=== PATIENT | female | born 1990 | race Caucasian/White ===

== ENCOUNTER 2016-11-19 10:57 | Day surgery (SDC) | payer OTHER ==
[~2016-11-19] VITALS: Ht 157.5 cm; Wt 54.4 kg
[~2016-11-19 10:57] MED LIST: CHAN0.5P2 PO; DIAZ10TA2 PO; HYDR25T PO; LORA10TA2 PO; LR 1,000 ML IV SCH; NICO21PAT TD; SERT-138 PO; TRAZ100T4 PO; TRAZ10TA PO; VALA500T PO; ZOLO100T PO
[2016-11-19] MEDS ORDERED: ROCURONIUM BROMIDE 50 MG/5 ML VIAL As Ordered ONE ×2 (11:09→13:21)
[2016-11-19] MEDS ORDERED: LIDOCAINE 2% INJ 100 MG/5 ML SDV (FOR ANES.) As Ordered ONE (11:09)
[2016-11-19] MEDS ORDERED: ONDANSETRON 4MG/2ML VIAL (J2405) As Ordered ONE (11:09)
[2016-11-19] MEDS ORDERED: PROPOFOL 200 MG/20 ML VIAL As Ordered ONE (11:09)
[2016-11-19] MEDS ORDERED: ceFAZolin SOD 1 GM in D5W MINI-BAG PLUS 50 ML IV ONE (11:15)
[2016-11-19] MEDS ORDERED: LR 1,000 ML IV SCH ×2 (11:15→15:15)
[2016-11-19 11:17] LABS: MEAN CORPUSCULAR HEMOGLOBIN 30.3 pg (27.0-33.0); MEAN CORPUSCULAR VOLUME 89.1 fl (80.0-96.0); RED CELL DISTRIBUTION WIDTH 12.5 % (11.5-14.5); WHITE BLOOD COUNT 6.6 K/mm3 (4.0-10.0)
[2016-11-19] MEDS ORDERED: MIDAZOLAM INJ 2 MG/2 ML VIAL (J2250) As Ordered ONE (11:46)
[2016-11-19] MEDS ORDERED: fentaNYL 100 MCG/2 ML INJECTION (J3010) As Ordered ONE ×3 (11:46→14:43)
[2016-11-19 11:52] LABS: CONTROL LINE UCG INT CTR LINE PRESENT
[2016-11-19] MEDS ORDERED: METHYLENE BLUE 1% 10 ML VIAL (Q9968) As Ordered ONE (12:19)
[2016-11-19] MEDS ORDERED: BUPIVACAINE HCL 0.25% 30 ML VIAL As Ordered ONE (12:19)
[2016-11-19] MEDS ORDERED: OXYC1TAB23 PO (12:42)
[2016-11-19] MEDS ORDERED: dexameTHASONE 4 MG/ML 1ML VIAL (J1100) As Ordered ONE (13:19)
[2016-11-19] MEDS ORDERED: HYDROmorphone HCL 2 MG/ML 1ML VIAL (J1170) As Ordered ONE (13:37)
[2016-11-19] MEDS ORDERED: BUPIVACAINE HCL 0.25% 30 ML VIAL XX ONE (13:51)
[2016-11-19] MEDS ORDERED: METHYLENE BLUE 1% 10 ML VIAL (Q9968) XX ONE (13:57)
[2016-11-19] MEDS ORDERED: NEOSTIGMINE 1MG/ML 5 ML SYRINGE (J2710) As Ordered ONE (14:02)
[2016-11-19] MEDS ORDERED: GLYCOPYRROLATE INJ 0.2 MG/ML 2 ML VIAL As Ordered ONE ×2 (14:02→14:03)
[2016-11-19] MEDS ORDERED: KETOROLAC 60 MG/2 ML VIAL (J1885) As Ordered ONE (14:05)
[2016-11-19] MEDS: fentaNYL 100 MCG/2 ML INJECTION (J3010) IV PRN ×4 (14:46→15:02)
[2016-11-19] MEDS ORDERED: MORPHINE 4 MG/ML 1ML SYRINGE IV PRN (15:15)
[2016-11-19] MEDS ORDERED: ONDANSETRON 4MG/2ML VIAL (J2405) IV PRN ×2 (15:15)
[2016-11-19] MEDS: LR 1,000 ML IV SCH ×2 (15:15→23:15)
[2016-11-19] MEDS ORDERED: HYDROmorphone HCL 1 MG/ML SYRINGE (J1170) As Ordered ONE (15:15)
[2016-11-19] MEDS ORDERED: PERCOCET 5MG/325MG TAB PO PRN ×2 (15:15)
[2016-11-19] MEDS: HYDROmorphone HCL 1 MG/ML SYRINGE (J1170) IV PRN ×3 (15:17→15:32)
[2016-11-19 16:15] VITALS: BP 98/54
[2016-11-19 16:30] VITALS: BP_SYST 116; BP_DIAS 57; BP_DIAS 64
[2016-11-19 17:30] VITALS: BP 98/54
[2016-11-19 18:30] VITALS: BP 115/65
[2016-11-19 20:00] VITALS: BP 93/55
[2016-11-19] MEDS: busPIRone 10 MG TAB PO SCH (21:00)
[2016-11-19 21:30] VITALS: BP 95/51
[2016-11-19] MEDS: PERCOCET 5MG/325MG TAB PO PRN (22:03)
[2016-11-19] MEDS: DOCUSATE SODIUM 100 MG CAP PO SCH (22:04)
[2016-11-19] MEDS ORDERED: KETOROLAC 30 MG/ML VIAL (J1885) IV PRN (22:30)
[2016-11-19] MEDS: VARENICLINE 1 MG TABLET PO SCH (23:05)
[2016-11-20] VITALS: BP 113/56
[2016-11-20] MEDS ORDERED: LORATADINE 10 MG TAB PO PRN (00:30)
[2016-11-20] MEDS ORDERED: hydrOXYzine 25 MG TAB PO PRN (00:30)
[2016-11-20] MEDS ORDERED: traZODone 100 MG TAB PO PRN (00:30)
[2016-11-20 04:00] VITALS: BP 98/54
[2016-11-20] MEDS: PERCOCET 5MG/325MG TAB PO PRN ×2 (04:32→10:18)
[2016-11-20 07:08] LABS: MEAN CORPUSCULAR HEMOGLOBIN 30.4 pg (27.0-33.0); MEAN CORPUSCULAR HGB CONC 33.5 g/dl (32.0-36.5); MEAN CORPUSCULAR VOLUME 90.8 fl (80.0-96.0); RED CELL DISTRIBUTION WIDTH 12.6 % (11.5-14.5); WHITE BLOOD COUNT 7.2 K/mm3 (4.0-10.0)
[2016-11-20 08:00] VITALS: BP 105/50
--- NOTE | 2016-11-20 08:42 | RO ---
DATE OF PROCEDURE: 11/19/2016 PREPROCEDURE DIAGNOSIS: Menorrhagia, dysmenorrhea. POSTPROCEDURE DIAGNOSIS: Menorrhagia, dysmenorrhea. PROCEDURE: Robotic-assisted laparoscopic hysterectomy, cystoscopy. SURGEON: Dr. Abimael Crandall IMPLEMENTATION DIRECTOR: Elena Vuong NP ANESTHESIA: General endotracheal. ESTIMATED BLOOD LOSS: Minimal. FINDINGS: Normal sized uterus, significantly shortened cervix with scarring of cervical os, normal ovaries, fallopian tubes with evidence of prior tubal sterilization. Filmy adhesions of the ascending colon to the anterior abdominal wall on the right. OPERATIVE SUMMARY: The patient was taken to the operating room where general endotracheal anesthesia was induced. She was prepped and draped in sterile fashion in the dorsal lithotomy position. Bolden catheter was placed. A Iotum uterine manipulator was placed. A periumbilical incision was made with a scalpel. A Veress needle was placed through this incision while tenting up on the skin of the abdomen. Intraabdominal location of the Veress needle was assessed with use of a saline filled syringe. A pneumoperitoneum was created. The Veress needle was removed. An 11 mm trocar was placed through this incision under direct visualization using [employer] Entertainment[employer]. Three 8 mm suprapubic ports were placed under direct visualization. The patient was placed in Trendelenburg position and da Jeremy surgical robot was docked. Adhesions of the ascending colon to the anterior abdominal wall were taken down sharply. Using PK dissector and monopolar Endo Karma, the fallopian tubes, utero-ovarian ligaments, and round ligaments were coagulated and incised. The anterior and posterior leaves of the broad ligament were . A bladder flap was created. The dyer assistant for the case was Elena Vuong. Her function was to assist with set up, including placement of the ports and docking of the robot. She also was responsible for manipulation of the uterus throughout the entire procedure. The uterine vessels were coagulated and incised. A colpotomy was created using monopolar Endo Karma and performed circumferentially around the cervix. The specimen, containing the uterus and cervix, was removed through the vagina. The vagina was closed with #2 V-Loc suture in a running fashion. The pelvis was irrigated. The patient received methylene blue dye intravenously. Cystoscopy was performed using a 70 degree cystoscope. There was in injury to the bladder. Bilateral ureteral jets were identified. The scope was removed and the Bolden catheter was replaced. All ports were removed. The fascia at the umbilical port was closed with interrupted suture of #0 Vicryl. The skin was closed with #4-0 Monocryl subcuticular sutures. Sponge, instrument and needle counts were correct.
[2016-11-20] MEDS ORDERED: SERTRALINE 100 MG TAB PO SCH (09:00)
[2016-11-20] MEDS ORDERED: IBUP200C PO (10:10)
[2016-11-20] MEDS: busPIRone 10 MG TAB PO SCH (10:15)
[2016-11-20] MEDS: DOCUSATE SODIUM 100 MG CAP PO SCH (10:15)
[2016-11-20] MEDS: VARENICLINE 1 MG TABLET PO SCH (10:15)
== END 2016-11-20 10:58 | disposition home or self-care (01) ==
LOC: M SDC 10:57 → M PED 15:32 → M SDC 11-20 10:58
PROVIDERS: ATTEND Specialist
DX: N92.0 Excessive and frequent menstruation with regular cycle (principal); N72 Inflammatory disease of cervix uteri; N94.6 Dysmenorrhea, unspecified; F41.9 Anxiety disorder, unspecified; F32.9 Major depressive disorder, single episode, unspecified; F17.210 Nicotine dependence, cigarettes, uncomplicated; Z79.899 Other long term (current) drug therapy
CPT/HCPCS: 36415; 58571; 84703; 85027; 88309; 96374; 96375; J0690; J1100; J1170; J1885; J2250; J2405; J2710; J3010; Q9968

== ENCOUNTER 2016-11-25 16:25 | Emergency (ER) | payer OTHER ==
[~2016-11-25 16:25] MED LIST changes: +IBUP200C PO; -LR 1,000 ML IV SCH; +OXYC1TAB23 PO
[2016-11-25] MEDS ORDERED: OXYCODONE/APAP 5MG/325MG(BULK) 1 TAB TAB As Ordered ONE (20:01)
[2016-11-25] MEDS ORDERED: MAGNESIUM CITRATE 300 ML BTL As Ordered ONE (20:02)
--- NOTE | 2016-11-25 20:09 | EDDOCDS ---
Physician Documentation [facility] Name: Trudy Johnson Age: 26 yrs Sex: Female : 1990 Arrival Date: 11/25/2016 Time: 16:25 Bed I6 Private MD: Mildred Alfonso M Disposition: 11/25/16 19:56 Discharged to Home/Self Care. Impression: Generalized abdominal pain - post-op. - Condition is Stable. - Discharge Instructions: Abdominal Pain, Adult, Constipation, Adult. - Medication Reconciliation form. - Follow up: Abimael Crandall MD; When: Tomorrow; Reason: Recheck today's complaints, Continuance of care. - Problem is an ongoing problem. - Symptoms are unchanged. - Notes: Follow up with Dr. Crandall in the morning for a recheck. Historical: - Allergies: Vicodin (Hives); - Home Meds: 1. Zoloft 100 mg Oral tab 2 tabs once daily 2. trazodone 100 mg Oral tab 1 tab nightly as needed 3. hydroxyzine HCl 25 mg Oral tab nightly 4. Chantix 1 mg Oral tab 1 tab 2 times per day - PMHx: Anxiety; Cutting; Depression; sleep disturbance; - PSHx: jaw surgery; cone biopsy; LEEP Procedure; Tubal ligation; - Social history: Smoking status: Patient states former smoker of tobacco. No barriers to communication noted, The patient speaks fluent Micronesian. - Family history: Not pertinent. - : The pt / caregiver states he / she is not on anticoagulants. Home medication list is obtained from the patient, [employer] import data. - Exposure Risk Screening:: None identified. 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 2 in. (157.48 cm) (R); Pain 6/10; 20:00 BP 116 / 67; Pulse 58; Resp 18; Temp 98.6; Pulse Ox 98% ; Pain 6/10; ajs 16:27 Body Mass Index 21.95 (54.43 kg, 157.48 cm) lr2 MDM: 19:07 Undress patient appropriately for examination ordered. cc10 19:09 ECG WITH READING ER PHYS+CARDIAG ordered. EDMS 19:55 Magnesium Citrate Liquid 300 ml PO once; Dispense home with pt. ordered. cc10 19:55 oxyCODONE-acetaminophen 4 pack 5 mg-325 mg 1 packets PO once; Dispense with pt, take as cc10 per instruction on package ordered. 19:58 Physician consultation: Discussed case with Dr. Thurston. He is not concerned about her cc10 symptoms at this point. Treat her constipation and Dr. Crandall can see her in the office tomorrow AM. Pt understands and agrees with treatment plan. . Administered Medications: 20:07 Drug: oxyCODONE-acetaminophen 4 pack 1 packets [oxycodone-acetaminophen 5 mg-325 mg kc3 tablet (1 tabs)] {Co-Signature: mcp (Erin Pradhan RN).} Route: PO; 20:08 Drug: Magnesium Citrate 300 ml [magnesium citrate oral solution (300 mL)] Route: PO; kc3 Signatures: Dispatcher [employer] EDMS Zo Natarajan, RN RN kcs Richard Leblanc PA-C PAS[place] cc10 Marina Rodriguez RN RN kc3 Erin Pradhan RN mcp MTDD
--- NOTE | 2016-11-25 20:09 | EDDOCDS ---
Nurse's Notes [facility] Name: Trudy Johnson Age: 26 yrs Sex: Female : 1990 Arrival Date: 11/25/2016 Time: 16:25 Bed I6 Private MD: Mildred Alfonso M Diagnosis: Generalized abdominal [id number] Presentation: 11/25 16:42 Presenting complaint: Patient states: she had a hysterectomy on Thursday and she has kcs been having a lot of pain - feels like she has a rubber band around her waist - hurts to take a deep breath - also has a yellow discharge. Also has pain in her left. has an appointment with her surgeon tomorrow. Adult Sepsis Screening: The patient does not have new or worsening altered mentation. Patient's respiratory rate is less than 22. Systolic blood pressure is greater than 100. Patient has a qSOFA score of 0- Negative Sepsis Screen. Suicide/Homicide risk assessment- the patient denies having any suicidal and/or homicidal ideations and does not present with any other emotional, behavioral or mental health complaints. Status: The patient is a dependent. Transition of care: patient was not received from another setting of care. 16:42 Acuity: HEATHER Level 3 kcs 16:42 Method Of Arrival: Walkin/Carried/Asstd kcs Triage Assessment: 16:45 General: Appears slender, uncomfortable, well developed, well nourished, well groomed, kcs Behavior is cooperative, pleasant. Pain: Location: left side of abdomen Pain currently is 6 out of 10 on a pain scale. HIV screening NA for this visit Offered previously. Neurological: Level of Consciousness is awake, alert. Respiratory: Airway is patent Respiratory effort is even, unlabored, Respiratory pattern is regular, symmetrical. Derm: Skin is intact, is healthy with good turgor, Skin is dry, Skin is normal. 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 Zoloft 100 mg Oral tab 2 tabs once daily 2. trazodone 100 mg Oral tab 1 tab nightly as needed 3. hydroxyzine HCl 25 mg Oral tab nightly 4. Chantix 1 mg Oral tab 1 tab 2 times per day - PMHx: Anxiety; Cutting; Depression; sleep disturbance; - PSHx: jaw surgery; cone biopsy; LEEP Procedure; Tubal ligation; - Social history: Smoking status: Patient states former smoker of tobacco. No barriers to communication noted, The patient speaks fluent Hebrew. - Family history: Not pertinent. - : The pt / caregiver states he / she is not on anticoagulants. Home medication list is obtained from the patient, [employer] import data. - Exposure Risk Screening:: None identified. Screenin:06 Screening information is obtained from the patient. Fall risk: No risks identified. kc3 Assistance ADL's: requires no assistance with activities of daily living. Abuse/DV Screen: The patient / caregiver reports he/she is: not in a situation that causes fear, pain or injury. Nutritional screening: No deficits noted. Advance Directives: Currently, there is no health care proxy. home support is adequate. Assessment: 20:05 General: Appears in no apparent distress, comfortable, Behavior is appropriate for age, kc3 cooperative. Pain: Location: abdomen. Neurological: Level of Consciousness is awake, alert, obeys commands, Oriented to person, place, time. Respiratory: Respiratory effort is even, unlabored. Derm: Skin is pink, warm & dry. Musculoskeletal: Circulation, motion, and sensation intact. Vital Signs: 16:27 BP 117 / 63; Pulse 60; Resp 16; Temp 98.1(O); Pulse Ox 98% on R/A; Weight 54.43 kg (R); lr2 Height 5 ft. 2 in. (157.48 cm) (R); Pain 6/10; 20:00 BP 116 / 67; Pulse 58; Resp 18; Temp 98.6; Pulse Ox 98% ; Pain 6/10; ajs 16:27 Body Mass Index 21.95 (54.43 kg, 157.48 cm) lr2 Vitals: 16:27 Log In Time: November 25, 2016 at 16:25. lr2 ED Course: 16:26 Patient visited by Nicole James. lr2 16:26 Patient moved to Waiting lr2 16:28 Mildred Alfonso is Private Physician. lr2 16:28 Patient moved to Pre RCE lr2 16:44 Triage Initiated kcs 18:44 Patient moved to Triage 2 ms18 18:56 [facility]anc [facility] cc10 18:56 Chichi Macias MD is Attending Physician. cc10 18:56 Patient visited by Richard Leblanc PA-C. cc10 18:56 Patient visited by Richard Leblanc PA-C. cc10 19:27 Patient visited by Barbara Emery RN. ms18 19:27 EKG done. (by ED staff). Reviewed by Richard Leblanc PA-C. ms18 19:32 Patient moved to ms18 19:56 Abimael Crandall MD is Referral Physician. cc10 20:01 Patient visited by Torri Harris. ajs 20:07 The patient / caregiver is instructed regarding the plan of care and ED course. kc3 20:07 No IV's were initiated during this patient's visit. No procedures done that require kc3 assistance. Administered Medications: 20:07 Drug: oxyCODONE-acetaminophen 4 pack 1 packets [oxycodone-acetaminophen 5 mg-325 mg kc3 tablet (1 tabs)] {Co-Signature: amrit (Erin Pradhan RN).} Route: PO; 20:08 Drug: Magnesium Citrate 300 ml [magnesium citrate oral solution (300 mL)] Route: PO; kc3 Order Results: There are currently no results for this order. Outcome: 19:56 Discharge ordered by Provider. cc10 20:06 Discharge Assessment: Patient awake, alert and oriented x 3. No cognitive and/or kc3 functional deficits noted. Patient verbalized understanding of disposition instructions. patient administered narcotics - no. The following High Risk Discharge criteria are identified: None. Discharged to home ambulatory. Condition: stable. Discharge instructions given to patient, Instructed on discharge instructions, follow up and referral plans. medication usage, Demonstrated understanding of instructions, medications, Pt was receptive of discharge instructions/ teaching. No special radiology studies were completed. Property :Personal belongings accompany Pt. 20:08 Patient left the ED. kc3 Signatures: Zo Natarajan RN RN kcs Slate, Amanda ajs Coniski, Colin, PA-C PA-C [facility] Barbara Emery RN RN ms18 Marina Rodriguez RN RN kc3 Nicole James lr2 Erin Pradhan RN, mcp MTDD
--- NOTE | 2016-11-26 10:03 | ECGEPIP ---
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
--- NOTE | 2016-11-27 21:09 | EDDOCDS ---
Physician Documentation [facility] Name: Trudy Johnson Age: 26 yrs Sex: Female : 1990 Arrival Date: 11/25/2016 Time: 16:25 Bed I6 Private MD: Mildred Alfonso M Disposition: 11/25/16 19:56 Discharged to Home/Self Care. Impression: Generalized abdominal pain - post-op. - Condition is Stable. - Discharge Instructions: Abdominal Pain, Adult, Constipation, Adult. - Medication Reconciliation form. - Follow up: Abimael Crandall MD; When: Tomorrow; Reason: Recheck today's complaints, Continuance of care. - Problem is an ongoing problem. - Symptoms are unchanged. - Notes: Follow up with Dr. Crandall in the morning for a recheck. Historical: - Allergies: Vicodin (Hives); - Home Meds: 1. Zoloft 100 mg Oral tab 2 tabs once daily 2. trazodone 100 mg Oral tab 1 tab nightly as needed 3. hydroxyzine HCl 25 mg Oral tab nightly 4. Chantix 1 mg Oral tab 1 tab 2 times per day - PMHx: Anxiety; Cutting; Depression; sleep disturbance; - PSHx: jaw surgery; cone biopsy; LEEP Procedure; Tubal ligation; - Social history: Smoking status: Patient states former smoker of tobacco. No barriers to communication noted, The patient speaks fluent Luxembourgish. - Family history: Not pertinent. - : The pt / caregiver states he / she is not on anticoagulants. Home medication list is obtained from the patient, [employer] import data. - Exposure Risk Screening:: None identified. 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 2 in. (157.48 cm) (R); Pain 6/10; 20:00 BP 116 / 67; Pulse 58; Resp 18; Temp 98.6; Pulse Ox 98% ; Pain 6/10; ajs 16:27 Body Mass Index 21.95 (54.43 kg, 157.48 cm) lr2 MDM: 19:07 Undress patient appropriately for examination ordered. cc10 19:09 ECG WITH READING ER PHYS+CARDIAG ordered. EDMS 19:55 Magnesium Citrate Liquid 300 ml PO once; Dispense home with pt. ordered. cc10 19:55 oxyCODONE-acetaminophen 4 pack 5 mg-325 mg 1 packets PO once; Dispense with pt, take as cc10 per instruction on package ordered. 19:58 Physician consultation: Discussed case with Dr. Thurston. He is not concerned about her cc10 symptoms at this point. Treat her constipation and Dr. Crandall can see her in the office tomorrow AM. Pt understands and agrees with treatment plan. . 20:11 [facility] Payment Agreement was scanned into People [employer] Pages and attached to record. vt: Financial registration complete. vt11/26 12:52 T-Sheet-- Draft Copy was scanned into [employer] and attached to record. gb 12:52 ECG/EKG was scanned into [employer] and attached to record. gb Administered Medications: 11/25 20:07 Drug: oxyCODONE-acetaminophen 4 pack 1 packets [oxycodone-acetaminophen 5 mg-325 mg kc3 tablet (1 tabs)] {Co-Signature: mcp (Erin Pradhan RN).} Route: PO; 20:08 Drug: Magnesium Citrate 300 ml [magnesium citrate oral solution (300 mL)] Route: PO; kc3 Signatures: Dispatcher [employer] EDMS Zo Natarajan RN RN kcs Kandice Love, Reg Reg gb Richard Leblanc, [place] cc10 Marina Rodriguez RN RN kc3 Bonny De La Cruz, Reg Reg ks16 Erin Pradhan RN, mcp The chart was reviewed and I authenticate all verbal orders and agree with the evaluation and treatment provided.Attachments: 20:11 [facility] Payment Agreement 11/26 12:52 T-Sheet-- Draft Copy gb 12:52 ECG/EKG gb Chart Complete MTDD
--- NOTE | 2016-11-27 21:09 | EDDOCDS ---
[facility]ation [facility] Name: Trudy [facility] Age: 26 yrs Sex: Female : 1990 Arrival Date: 11/25/2016 Time: 16:25 Bed I6 Private MD: Mildred Alfonso M Disposition: 11/25/16 19:56 Discharged to Home/Self Care. Impression: Generalized abdominal pain - post-op. - Condition is Stable. - Discharge Instructions: Abdominal Pain, Adult, Constipation, Adult. - Medication Reconciliation form. - Follow up: Abimael Crandall MD; When: Tomorrow; Reason: Recheck today's complaints, Continuance of care. - Problem is an ongoing problem. - Symptoms are unchanged. - Notes: Follow up with Dr. Crandall in the morning for a recheck. Historical: - Allergies: Vicodin (Hives); - Home Meds: 1. Zoloft 100 mg Oral tab 2 tabs once daily 2. trazodone 100 mg Oral tab 1 tab nightly as needed 3. hydroxyzine HCl 25 mg Oral tab nightly 4. Chantix 1 mg Oral tab 1 tab 2 times per day - PMHx: Anxiety; Cutting; Depression; sleep disturbance; - PSHx: jaw surgery; cone biopsy; LEEP Procedure; Tubal ligation; - Social history: Smoking status: Patient states former smoker of tobacco. No barriers to communication noted, The patient speaks fluent Kiswahili. - Family history: Not pertinent. - : The pt / caregiver states he / she is not on anticoagulants. Home medication list is obtained from the patient, [employer] import data. - Exposure Risk Screening:: None identified. 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 2 in. (157.48 cm) (R); Pain 6/10; 20:00 BP 116 / 67; Pulse 58; Resp 18; Temp 98.6; Pulse Ox 98% ; Pain 6/10; ajs 16:27 Body Mass Index 21.95 (54.43 kg, 157.48 cm) lr2 MDM: 19:07 Undress patient appropriately for examination ordered. cc10 19:09 ECG WITH READING ER PHYS+CARDIAG ordered. EDMS 19:55 Magnesium Citrate Liquid 300 ml PO once; Dispense home with pt. ordered. cc10 19:55 oxyCODONE-acetaminophen 4 pack 5 mg-325 mg 1 packets PO once; Dispense with pt, take as cc10 per instruction on package ordered. 19:58 Physician consultation: Discussed case with Dr. Thurston. He is not concerned about her cc10 symptoms at this point. Treat her constipation and Dr. Crandall can see her in the office tomorrow AM. Pt understands and agrees with treatment plan. . 20:11 [facility] Payment Agreement was scanned into [employer] and attached to record. ia: Financial registration complete. ia11/26 12:52 T-Sheet-- Draft Copy was scanned into [employer] and attached to record. gb 12:52 ECG/EKG was scanned into [employer] and attached to record. gb Administered Medications: 11/25 20:07 Drug: oxyCODONE-acetaminophen 4 pack 1 packets [oxycodone-acetaminophen 5 mg-325 mg kc3 tablet (1 tabs)] {Co-Signature: mcp (Erin Pradhan RN).} Route: PO; 20:08 Drug: Magnesium Citrate 300 ml [magnesium citrate oral solution (300 mL)] Route: PO; kc3 Signatures: Dispatcher [employer] EDMS Zo Natarajan RN RN kcs Kandice Love, Reg Reg gb Richard Leblanc, [place] cc10 Marina Rodriguez RN RN kc3 Bonny De La Cruz, Reg Reg ks16 Erin Pradhan RN, mcp The chart was reviewed and I authenticate all verbal orders and agree with the evaluation and treatment provided.Attachments: 20:11 [facility] Payment Agreement 11/26 12:52 T-Sheet-- Draft Copy gb 12:52 ECG/EKG gb Chart Complete MTDD
--- NOTE | 2016-11-27 21:09 | EDDOCDS ---
Nurse's Notes [facility] Name: Trudy Johnson Age: 26 yrs Sex: Female : 1990 Arrival Date: 11/25/2016 Time: 16:25 Bed I6 Private MD: Mildred Alfonso M Diagnosis: Generalized abdominal [id number] Presentation: 11/25 16:42 Presenting complaint: Patient states: she had a hysterectomy on Thursday and she has kcs been having a lot of pain - feels like she has a rubber band around her waist - hurts to take a deep breath - also has a yellow discharge. Also has pain in her left. has an appointment with her surgeon tomorrow. Adult Sepsis Screening: The patient does not have new or worsening altered mentation. Patient's respiratory rate is less than 22. Systolic blood pressure is greater than 100. Patient has a qSOFA score of 0- Negative Sepsis Screen. Suicide/Homicide risk assessment- the patient denies having any suicidal and/or homicidal ideations and does not present with any other emotional, behavioral or mental health complaints. Status: The patient is a dependent. Transition of care: patient was not received from another setting of care. 16:42 Acuity: HEATHER Level 3 kcs 16:42 Method Of Arrival: Walkin/Carried/Asstd kcs Triage Assessment: 16:45 General: Appears slender, uncomfortable, well developed, well nourished, well groomed, kcs Behavior is cooperative, pleasant. Pain: Location: left side of abdomen Pain currently is 6 out of 10 on a pain scale. HIV screening NA for this visit Offered previously. Neurological: Level of Consciousness is awake, alert. Respiratory: Airway is patent Respiratory effort is even, unlabored, Respiratory pattern is regular, symmetrical. Derm: Skin is intact, is healthy with good turgor, Skin is dry, Skin is normal. 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 Zoloft 100 mg Oral tab 2 tabs once daily 2. trazodone 100 mg Oral tab 1 tab nightly as needed 3. hydroxyzine HCl 25 mg Oral tab nightly 4. Chantix 1 mg Oral tab 1 tab 2 times per day - PMHx: Anxiety; Cutting; Depression; sleep disturbance; - PSHx: jaw surgery; cone biopsy; LEEP Procedure; Tubal ligation; - Social history: Smoking status: Patient states former smoker of tobacco. No barriers to communication noted, The patient speaks fluent German. - Family history: Not pertinent. - : The pt / caregiver states he / she is not on anticoagulants. Home medication list is obtained from the patient, [employer] import data. - Exposure Risk Screening:: None identified. Screenin:06 Screening information is obtained from the patient. Fall risk: No risks identified. kc3 Assistance ADL's: requires no assistance with activities of daily living. Abuse/DV Screen: The patient / caregiver reports he/she is: not in a situation that causes fear, pain or injury. Nutritional screening: No deficits noted. Advance Directives: Currently, there is no health care proxy. home support is adequate. Assessment: 20:05 General: Appears in no apparent distress, comfortable, Behavior is appropriate for age, kc3 cooperative. Pain: Location: abdomen. Neurological: Level of Consciousness is awake, alert, obeys commands, Oriented to person, place, time. Respiratory: Respiratory effort is even, unlabored. Derm: Skin is pink, warm & dry. Musculoskeletal: Circulation, motion, and sensation intact. Vital Signs: 16:27 BP 117 / 63; Pulse 60; Resp 16; Temp 98.1(O); Pulse Ox 98% on R/A; Weight 54.43 kg (R); lr2 Height 5 ft. 2 in. (157.48 cm) (R); Pain 6/10; 20:00 BP 116 / 67; Pulse 58; Resp 18; Temp 98.6; Pulse Ox 98% ; Pain 6/10; ajs 16:27 Body Mass Index 21.95 (54.43 kg, 157.48 cm) lr2 Vitals: 16:27 Log In Time: November 25, 2016 at 16:25. lr2 ED Course: 16:26 Patient visited by Nicole James. lr2 16:26 Patient moved to Waiting lr2 16:28 Mildred Alfonso is Private Physician. lr2 16:28 Patient moved to Pre RCE lr2 16:44 Triage Initiated kcs 18:44 Patient moved to Triage 2 ms18 18:56 Richard Leblanc PA-C [facility]. cc10 18:56 Chichi Macias MD is Attending Physician. cc10 18:56 Patient visited by Richard Leblanc PA-C. cc10 18:56 Patient visited by Richard Leblanc PA-C. cc10 19:27 Patient visited by Barbara Emery RN. ms18 19:27 EKG done. (by ED staff). Reviewed by Richard Leblanc PA-C. ms18 19:32 Patient moved to ms18 19:56 Abimael Crandall MD is Referral Physician. cc10 20:01 Patient visited by Torri Harris. ajs 20:07 The patient / caregiver is instructed regarding the plan of care and ED course. kc3 20:07 No IV's were initiated during this patient's visit. No procedures done that require kc3 assistance. 20:11 [facility] Payment Agreement was scanned into [employer] and attached to record. ks16 20:13 Patient name changed from Trudy\S\\S\Nay\S\ to Trudy\S\ \S\Nay. EDMS 11/26 10:06 EKG-ADULT Returned. EDMS 12:52 T-Sheet-- Draft Copy was scanned into [employer] and attached to record. gb 12:52 ECG/EKG was scanned into [employer] and attached to record. 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 cc10 20:06 Discharge Assessment: Patient awake, alert and oriented x 3. No cognitive and/or kc3 functional deficits noted. Patient verbalized understanding of disposition instructions. patient administered narcotics - no. The following High Risk Discharge criteria are identified: None. Discharged to home ambulatory. Condition: stable. Discharge instructions given to patient, Instructed on discharge instructions, follow up and referral plans. medication usage, Demonstrated understanding of instructions, medications, Pt was receptive of discharge instructions/ teaching. No special radiology studies were completed. Property :Personal belongings accompany Pt. 20:08 Patient left the ED. kc3 Signatures: Dispatcher [employer] EDMS Zo Natarajan, RN RN kcs Kandice Love, Reg Reg gb Kimberly, Richard Alonzo, PA-C PA-C cc10 Barbara Emery RN RN ms18 Marina Rodriguez RN RN kc3 Bonny De La Cruz, Reg Reg ks16 Nicole James lr2 Erin Pradhan RN [facility] Chart Complete MTDD
== END 2016-11-25 20:08 | disposition home or self-care (01) ==
LOC: M ED 16:25
DX: G89.18 Other acute postprocedural pain (principal); R10.84 Generalized abdominal pain; K59.00 Constipation, unspecified; F41.9 Anxiety disorder, unspecified; F32.9 Major depressive disorder, single episode, unspecified; G47.9 Sleep disorder, unspecified; Z87.891 Personal history of nicotine dependence; Z79.899 Other long term (current) drug therapy; Z88.5 Allergy status to narcotic agent

== ENCOUNTER → 2017-02-04 | Outpatient (CLI) | payer OTHER ==
[~2017-02-04] MED LIST changes: +ISOVUE-370 76% 100ML VIAL (Q9967) As Ordered ONE
--- NOTE | 2017-02-06 15:05 | REP ---
REASON: Chest pain. The examination is dated 02/04/2017, however, it has been brought to my attention for the first time for interpretation today at this time. There are no priors for comparison. Contrast utilized: 100 mL Isovue 370. There is excellent visualization of the pulmonary arterial vasculature. There are no focal filling defects present that would be considered consistent with pulmonary emboli. There is no mediastinal or hilar adenopathy. There are no pleural or pericardial effusions. The imaged upper abdomen is within normal limits. The imaged osseous structures are within normal limits. Evaluation of the lung euceda show a tiny incidental calcified granuloma in the left lower lobe. IMPRESSION: No evidence of a pulmonary embolus. No acute disease. Signed by Edu Leyva DO 02/06/2017 05:01 P
== END ==
LOC: M RAD 09:01
PROVIDERS: ATTEND Internal Medicine Cardiovascular Disease
DX: R07.9 Chest pain, unspecified (principal)
CPT/HCPCS: 71275; Q9967

== ENCOUNTER → 2017-04-29 | Outpatient (CLI) | payer OTHER ==
[~2017-04-29] MED LIST changes: +HYDR-3363 PO; -HYDR25T PO; -IBUP200C PO; +IBUP200C10 PO; -ISOVUE-370 76% 100ML VIAL (Q9967) As Ordered ONE; +TRAZ-136 PO; -TRAZ100T4 PO; -VALA500T PO; +VALA500T2 PO
[2017-04-29 13:47] LABS: LUTEINIZING HORMONE 32.9 mIU/mL
[2017-04-29 13:48] LABS: ESTRADIOL 257.8 PG/ML; FOLLICLE STIMULATING HORMONE 8.4 mIU/mL
== END ==
LOC: M SMT 09:02
PROVIDERS: ATTEND Specialist
DX: N95.1 Menopausal and female climacteric states (principal)

== ENCOUNTER → 2017-05-15 | Outpatient (REF) | payer OTHER ==
[2017-05-15 12:38] LABS: BASO % 0.7 % (0.0-1.0); EOS # 0.1 K/mm3 (0.0-0.50); EOS % 1.9 % (0.0-3.0); LARGE UNSTAINED CELL # 0.1 K/mm3 (0.0-0.4); LYMPH # 1.8 K/mm3 (1.5-6.5); MEAN CORPUSCULAR HEMOGLOBIN 30.6 pg (27.0-33.0); MEAN CORPUSCULAR HGB CONC 33.7 g/dl (32.0-36.5); MEAN CORPUSCULAR VOLUME 90.8 fl (80.0-96.0); MONO # 0.2 K/mm3 (0.0-0.8); MONO % 6.1 % (0.0-5.0); NEUTROPHILS # 1.7 K/mm3 (1.8-7.7); NEUTROPHILS % 43.2 % (36.0-66.0); PLATELET COUNT, AUTOMATED 248 k/mm3 (150-450); RED CELL DISTRIBUTION WIDTH 12.7 % (11.5-14.5); WHITE BLOOD COUNT 3.8 K/mm3 (4.0-10.0)
[2017-05-15 13:02] LABS: ERYTHROCYTE SEDIMENTATION RATE 6 mm/hr (0-20)
[2017-05-15 13:28] LABS: FOLATE > 24.0 NG/ML (>5.4); VITAMIN B12 LEVEL 522 PG/ML (247-911)
[2017-05-15 13:32] LABS: ALBUMIN 4.1 GM/DL (3.2-5.2); ALBUMIN/GLOBULIN RATIO 1.28 (1.00-1.93); ALKALINE PHOSPHATASE 48 U/L (45-117); ALT/SGPT 17 U/L (12-78); ANION GAP 5 MEQ/L (8-16); AST/SGOT 13 U/L (15-37); BILIRUBIN,TOTAL 1.4 MG/DL (0.2-1.0); BLOOD UREA NITROGEN 11 MG/DL (7-18); CALCIUM LEVEL 8.8 MG/DL (8.5-10.1); CARBON DIOXIDE LEVEL 29 MEQ/L (21-32); CHLORIDE LEVEL 109 MEQ/L (98-107); CREATININE FOR GFR 0.85 MG/DL (0.55-1.02); GLOMERULAR FILTRATION RATE > 60.0 (>60); GLUCOSE, FASTING 82 MG/DL (70-105); POTASSIUM SERUM 3.8 MEQ/L (3.5-5.1); SODIUM LEVEL 143 MEQ/L (136-145); TOTAL PROTEIN 7.3 GM/DL (6.4-8.2)
[2017-05-18 14:55] LABS: ALBUMIN 4.33 GM/DL (3.29-5.55); ALBUMIN % 59.3 % (55.8-66.1)
[2017-05-19 08:06] LABS: Lyme Disease IgG/IgM Antibodie <0.91 ISR (0.00-0.90); Lyme Disease IgM Ab Quantitati <0.80 index (0.00-0.79); SJOGREN'S ANTI SS-A 3.2 AI (0.0-0.9); SJOGREN'S ANTI SS-B <0.2 AI (0.0-0.9); VITAMIN E LEVEL 6.6 mg/L (5.3-16.8)
== END ==
LOC: M LABNEURO 11:21
PROVIDERS: ATTEND Psychiatry & Neurology Neurology
DX: G62.9 Polyneuropathy, unspecified (principal); R55 Syncope and collapse

== ENCOUNTER → 2017-08-15 | Outpatient (REF) | payer OTHER | LOC: M LAB REF 09:43 | PROVIDERS: ATTEND Physician Assistant | DX: J02.9 Acute pharyngitis, unspecified (principal) ==

== ENCOUNTER 2017-11-05 17:05 | Emergency (ER) | payer OTHER ==
[2017-11-05] MEDS: METOCLOPRAMIDE 10 MG TAB PO (18:51)
[2017-11-05 19:04] LABS: BASO % 0.5 % (0.0-1.0); EOS # 0.1 10^3/uL (0.0-0.50); EOS % 0.9 % (0.0-3.0); HEMATOCRIT 36.3 % (36.0-47.0); HEMOGLOBIN 12.1 g/dl (12.0-16.0); IMMATURE GRANULOCYTE % 0.2 % (0-0); LYMPH # 3.2 10^3/uL (1.5-6.5); LYMPH % 48.5 % (24.0-44.0); MEAN CORPUSCULAR HEMOGLOBIN 30.1 pg (27.0-33.0); MEAN CORPUSCULAR HGB CONC 33.3 g/dl (32.0-36.5); MEAN CORPUSCULAR VOLUME 90.3 fl (80.0-96.0); MONO # 0.5 10^3/uL (0.0-0.8); MONO % 7.8 % (0.0-5.0); NEUTROPHILS # 2.8 10^3/uL (1.8-7.7); NEUTROPHILS % 42.1 % (36.0-66.0); PLATELET COUNT, AUTOMATED 215 10^3/uL (150-450); RED BLOOD COUNT 4.02 10^6/uL (4.00-5.40); RED CELL DISTRIBUTION WIDTH 12.3 % (11.5-14.5); WHITE BLOOD COUNT 6.6 10^3/uL (4.0-10.0)
[2017-11-05 19:11] LABS: KETONE, URINE AUTO RFX NEGATIVE (NEGATIVE); LEUKOCYTE ESTERASE UR AUTO RFX NEGATIVE (NEGATIVE); MUCUS, URINE RFX SMALL (NEGATIVE); NITRITE, URINE AUTO RFX NEGATIVE (NEGATIVE); RBC, URINE AUTO RFX 1 /HPF (0-3); SPECIFIC GRAVITY UR AUTO RFX 1.014 (1.002-1.035); SQUAM EPITHELIAL CELL UR AURFX 0 /HPF (0-6); WBC, URINE AUTO RFX 2 /HPF (0-3)
[2017-11-05 19:25] LABS: ANION GAP 4 MEQ/L (8-16); BLOOD UREA NITROGEN 15 MG/DL (7-18); CALCIUM LEVEL 8.4 MG/DL (8.5-10.1); CARBON DIOXIDE LEVEL 29 MEQ/L (21-32); CHLORIDE LEVEL 106 MEQ/L (98-107); CREATININE FOR GFR 0.93 MG/DL (0.55-1.30); GLOMERULAR FILTRATION RATE > 60.0 (>60); GLUCOSE, FASTING 85 MG/DL (70-100); POTASSIUM SERUM 3.9 MEQ/L (3.5-5.1); SODIUM LEVEL 139 MEQ/L (136-145)
== END 2017-11-05 20:42 | disposition home or self-care (01) ==
LOC: M ED 17:05
DX: N83.202 Unspecified ovarian cyst, left side (principal); K59.00 Constipation, unspecified; Z87.891 Personal history of nicotine dependence
CPT/HCPCS: 76830

== ENCOUNTER → 2018-03-25 | Outpatient (CLI) | payer OTHER ==
[2018-03-25 13:27] LABS: BASO % 0.7 % (0.0-1.0); EOS # 0.1 10^3/uL (0.0-0.50); EOS % 1.2 % (0.0-3.0); HEMATOCRIT 39.3 % (36.0-47.0); IMMATURE GRANULOCYTE % 0.2 % (0-3.0); LYMPH # 2.1 10^3/uL (1.5-6.5); LYMPH % 49.3 % (24.0-44.0); MEAN CORPUSCULAR HEMOGLOBIN 30.3 pg (27.0-33.0); MEAN CORPUSCULAR HGB CONC 33.1 g/dl (32.0-36.5); MEAN CORPUSCULAR VOLUME 91.6 fl (80.0-96.0); MONO # 0.4 10^3/uL (0.0-0.8); MONO % 9.7 % (0.0-5.0); NEUTROPHILS # 1.7 10^3/uL (1.8-7.7); NEUTROPHILS % 38.9 % (36.0-66.0); PLATELET COUNT, AUTOMATED 260 10^3/uL (150-450); RED BLOOD COUNT 4.29 10^6/uL (4.00-5.40); RED CELL DISTRIBUTION WIDTH 12.7 % (11.5-14.5); WHITE BLOOD COUNT 4.3 10^3/uL (4.0-10.0)
[2018-03-25 13:38] LABS: ALBUMIN 3.9 GM/DL (3.2-5.2); ALBUMIN/GLOBULIN RATIO 1.11 (1.00-1.93); ALKALINE PHOSPHATASE 46 U/L (45-117); ALT/SGPT 24 U/L (12-78); ANION GAP 8 MEQ/L (8-16); AST/SGOT 18 U/L (7-37); BILIRUBIN,TOTAL 0.9 MG/DL (0.2-1.0); BLOOD UREA NITROGEN 11 MG/DL (7-18); C REACTIVE PROTEIN QUANTITATIV < 0.30 MG/DL (0.00-0.30); CALCIUM LEVEL 8.5 MG/DL (8.5-10.1); CARBON DIOXIDE LEVEL 28 MEQ/L (21-32); CHLORIDE LEVEL 105 MEQ/L (98-107); CREATININE FOR GFR 1.04 MG/DL (0.55-1.30); GLOMERULAR FILTRATION RATE > 60.0 (>60); GLUCOSE, FASTING 83 MG/DL (70-100); POTASSIUM SERUM 4.4 MEQ/L (3.5-5.1); SODIUM LEVEL 141 MEQ/L (136-145); TOTAL PROTEIN 7.4 GM/DL (6.4-8.2)
[2018-03-25 21:40] LABS: ERYTHROCYTE SEDIMENTATION RATE 6 mm/hr (0-20)
== END ==
LOC: M SMT 09:51
DX: Z79.899 Other long term (current) drug therapy (principal)
CPT/HCPCS: 80053